=== PATIENT | female | born 1945 | race American Indian/Alaskan Native ===

== ENCOUNTER 2019-02-10 23:29 | Emergency (ER) | payer MEDICARE ==
[2019-02-11] VITALS: RESP 18
--- NOTE | 2019-02-11 01:18 | ED PDOC ---
Lower Extremity Pain/Injury Time Seen by Provider: 02/11/19 00:16 Chief Complaint (Nursing): Lower Extremity Problem/Injury Chief Complaint (Provider): Lower Extremity Problem/Injury History Per: Patient History/Exam Limitations: no limitations Additional Complaint(s): 73 y/o female with history of recently diagnosed breast mass s/p lumpectomy presents with left lower extremity plane. Patient reports that she frequently takes long plan rides and is concerned for possible blood clot. Patient states when she walk she has pain in her legs that causes her to stop walking. Patient also has had problems with varicose veins and has had bursting of superficial blood vessels. Past Medical History Reviewed: Historical Data, Nursing Documentation, Vital Signs Vital Signs: Last Vital Signs Temp 98.2 F 02/10/19 23:55 Pulse 78 02/10/19 23:55 Resp 18 02/10/19 23:55 BP 124/64 02/10/19 23:55 Pulse Ox 99 02/10/19 23:55 - Medical History Other PMH: Varicose Veins; Breast mass s/p lumpectomy - Surgical History Other surgeries: Lumpectomy - Family History Family History: States: Unknown Family Hx - Allergies Allergies/Adverse Reactions: Allergies Allergy/AdvReac Type Severity Reaction Status Date / Time avocado Allergy NAUSEA Verified 02/10/19 23:54 strawberry Allergy ANAPHYLAXIS Verified 02/10/19 23:54 Review of Systems ROS Statement: Except As Marked, All Systems Reviewed And Found Negative Musculoskeletal: Positive for: Leg Pain (left) Physical Exam - Reviewed Nursing Documentation Reviewed: Yes Vital Signs Reviewed: Yes - Physical Exam Appears: Positive for: Well, Non-toxic, No Acute Distress Head Exam: Positive for: ATRAUMATIC, NORMAL INSPECTION, NORMOCEPHALIC Skin: Positive for: Normal Color, Warm, DRY Eye Exam: Positive for: EOMI, Normal appearance, PERRL Extremity: Positive for: Normal ROM (full ROM), Pedal Edema (bilateral non- pitting), Swelling (bilateral non-pitting edema of lower extremities), Other (negative Homanns sign bilatearlly; no erythema) Neurological/Psych: Positive for: Awake, Alert, Normal Tone. Negative for: Motor/Sensory Deficits - ECG O2 Sat by Pulse Oximetry: 99 (RA) Pulse Ox Interpretation: Normal Medical Decision Making Medical Decision Making: Time:00:44 A/P: Likely intermittent claudication. Plan to r/o DVT with US * US Duplex lower ext 300 U/S negative for DVT Advised patient to followup with Dr. Padilla, vascular surgery Well appearing upon discharge. Scribe Attestation: Documented by Archie Jackson, acting as a scribe Jeyson Davila MD. Provider Scribe Attestation: All medical record entries made by the Scribe were at my direction and personally dictated by me. I have reviewed the chart and agree that the record accurately reflects my personal performance of the history, physical exam, medical decision making, and the department course for this patient. I have also personally directed, reviewed, and agree with the discharge instructions and disposition. Disposition - Clinical Impression Clinical Impression: Leg pain - Disposition Referrals: Roseann Padilla MD [Medical Doctor] - Disposition: Routine/Home Disposition Time: 03:00 Condition: GOOD Instructions: Peripheral Artery Disease and Claudication, Lower Extremity Muscle Strain Forms: [employer] (Estonian)
[2019-02-11 03:52] VITALS: BP 117/73; PULSE 74; TEMP 97.8
[2019-02-11 04:56] VITALS: O2SAT 99
--- NOTE | 2019-02-11 10:10 | US ---
Date of service: 02/11/2019 PROCEDURE: Bilateral lower extremity venous duplex Doppler. HISTORY: leg pain, recent travel, r/o DVT COMPARISON: None available. TECHNIQUE: Bilateral common femoral, superficial femoral, popliteal and posterior tibial veins were evaluated. Flow was assessed with color Doppler, compressibility, assessment of phasic flow and augmentation response. FINDINGS: COMMON FEMORAL VEIN: Right CFV: Unremarkable. Left CFV: Unremarkable. SUPERFICIAL FEMORAL VEIN: Right SFV: Unremarkable. Left SFV: Unremarkable. POPLITEAL VEIN: Right Popliteal: Unremarkable. Left Popliteal: Unremarkable. POSTERIOR TIBIAL VEIN: Right PTV: Unremarkable. Left PTV: Unremarkable. OTHER FINDINGS: None. IMPRESSION: No evidence of deep venous thrombosis. Preliminary impression was provided by [employer].
== END 2019-02-11 04:00 | disposition home or self-care (01) ==
LOC: H.ER 23:29
DX: M79.605 Pain in left leg (principal)

== ENCOUNTER 2019-03-20 00:16 | Emergency (ER) | payer MEDICARE ==
[2019-03-20 00:29] VITALS: BMI 30.9
--- NOTE | 2019-03-20 01:54 | ED PDOC ---
Lower Extremity Pain/Injury Time Seen by Provider: 03/20/19 00:36 Chief Complaint (Nursing): Lower Extremity Problem/Injury Chief Complaint (Provider): left knee pain History Per: Patient History/Exam Limitations: no limitations Onset/Duration Of Symptoms: Days (2 years), Waxing/Waning Current Symptoms Are (Timing): Still Present Additional Complaint(s): 73 y/o female presents for evaluation of left knee pain x 2 years. Patient states she has been doing excessive walking lately and thinks it may have exacerbated her symptoms. Denies known trauma, numbness/weakness left lower extremity, left calf tenderness. Past Medical History Reviewed: Historical Data, Nursing Documentation, Vital Signs Vital Signs: Last Vital Signs Temp 98.4 F 03/20/19 00:29 Pulse 83 03/20/19 00:29 Resp 18 03/20/19 00:29 BP 122/69 03/20/19 00:29 Pulse Ox 96 03/20/19 00:29 - Medical History PMH: No Chronic Diseases - Surgical History Surgical History: No Surg Hx - Family History Family History: States: Unknown Family Hx - Home Medications Home Medications: Ambulatory Orders Medication Instructions Recorded Naproxen [Naprosyn Tab] 375 mg PO BID PRN #14 tab 03/20/19 - Allergies Allergies/Adverse Reactions: Allergies Allergy/AdvReac Type Severity Reaction Status Date / Time avocado Allergy NAUSEA Verified 03/20/19 00:28 strawberry Allergy ANAPHYLAXIS Verified 03/20/19 00:28 Review of Systems ROS Statement: Except As Marked, All Systems Reviewed And Found Negative Musculoskeletal: Positive for: Leg Pain (left knee pain) Physical Exam - Reviewed Nursing Documentation Reviewed: Yes Vital Signs Reviewed: Yes - Physical Exam Appears: Positive for: Well, Non-toxic, No Acute Distress Extremity: Positive for: Normal ROM, Swelling (mild medial/lateral knee edema; FROM). Negative for: Pedal Edema, Calf Tenderness, Deformity Neurological/Psych: Positive for: Awake, Alert, Oriented (x3) - ECG O2 Sat by Pulse Oximetry: 96 - Other Rad left knee xray X-Ray: Viewed By Me X-Ray Interpretation: chronic arthritic changes - Progress ED Course And Treament: -ibuprofen PO -left knee xray -ice application Patient educated on findings, discharged with rx naprosyn MARYAM wrap applied, advised RICE Follow up PMD within 2-3 days Return precautions given Disposition - Clinical Impression Clinical Impression: Left knee pain - Patient ED Disposition Is Patient to be Admitted: No Counseled Patient/Family Regarding: Studies Performed, Diagnosis, Need For Followup, Rx Given - Disposition Disposition: Routine/Home Disposition Time: 01:54 Condition: IMPROVED Prescriptions: Naproxen [Naprosyn Tab] 375 mg PO BID PRN #14 tab PRN Reason: Pain, Moderate (4-7) Instructions: Knee Pain Forms: [employer] (Macedonian)
[2019-03-20 02:15] VITALS: BP 139/90; PULSE 65; RESP 14; TEMP 98; O2SAT 95
--- NOTE | 2019-03-20 15:47 | RAD ---
Date of service: 03/20/2019 PROCEDURE: Left Knee Radiographs. HISTORY: Pain. COMPARISON: None. TECHNIQUE: 2 views obtained. FINDINGS: BONES: No acute fracture or destructive bony lesion identified. JOINTS: Gross joint space narrowing is appreciate with minimal residual at the medial femorotibial compartment which is moderate the femorotibial compartment. Osteophytes are identified at all 3 joint compartments as well as variable articular cortical sclerosis. Pattern most compatible with advanced osteoarthritis. JOINT EFFUSION: None. OTHER FINDINGS: None. 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 No fracture or dislocation identified at the left knee.
== END 2019-03-20 02:13 | disposition home or self-care (01) ==
LOC: H.ER 00:16
DX: M25.562 Pain in left knee (principal)